=== PATIENT | male | born 2000 | race African-American/Black ===

== ENCOUNTER 2025-05-15 14:45 | Inpatient (IN) | payer OTHER ==
[~2025-05-15] VITALS: Ht 177.8 cm; Wt 72.5 kg
[2025-05-15 15:37] LABS: BASO # 0.0 10^3/uL (0.0-0.2); BASO % 0.1 % (0.0-1.0); EOS # 0.0 10^3/uL (0.0-0.5); EOS % 0.0 % (0.0-3.0); LYMPH # 1.4 10^3/uL (1.5-5.0); LYMPH % 9.1 % (24.0-44.0); MONO # 2.0 10^3/uL (0.0-0.8); MONO % 12.6 % (2.0-8.0); NEUTROPHILS # 12.3 10^3/uL (1.5-8.5); NEUTROPHILS % 77.8 % (36.0-66.0); PLATELET COUNT, AUTOMATED 213 10^3/uL (150-450)
[2025-05-15] MEDS: LIDOCAINE 2% 5 ML JELLY UROJET TOP ONE (15:39)
[2025-05-15] MEDS ORDERED: MIDAZOLAM 5 MG/ML 1 ML VIAL As Ordered ONE (15:54)
[2025-05-15] MEDS: MIDAZOLAM INJ 2 MG/2 ML VIAL IV ONE (15:55)
[2025-05-15] MEDS ORDERED: LEVETIRACETAM IV ONE ×2 (15:55→16:30)
[2025-05-15] MEDS ORDERED: D5W IV ONE ×2 (15:55→16:30)
[2025-05-15] MEDS: NS (Normal Saline) 0.9% 2,000 ML IV STA (16:04)
[2025-05-15 16:14] LABS: ALT/SGPT 26 U/L (7.0-40); AMPHETAMINES LEVEL URINE NEGATIVE (NEGATIVE); AST/SGOT 235 U/L (<34); BARBITURATES URINE NEGATIVE (NEGATIVE); BENZODIAZEPINES URINE NEGATIVE (NEGATIVE); CALCIUM LEVEL 10.1 MG/DL (8.5-10.1); CANNABINOIDS URINE POSITIVE (NEGATIVE); CARBON DIOXIDE LEVEL 26 MMOL/L (20-31); CHLORIDE LEVEL 104 MMOL/L (98-107); COCAINE METABOLITE URINE NEGATIVE (NEGATIVE); CREATININE FOR GFR 1.52 MG/DL (0.70-1.30); ETHYL ALCOHOL (ETHANOL) < 0.003 % (0.000-0.010); GLOMERULAR FILTRATION RATE 62.8 (>60); METHADONE URINE NEGATIVE (NEGATIVE); OPIATES URINE NEGATIVE (NEGATIVE); PHENCYCLIDINE URINE NEGATIVE (NEGATIVE); POTASSIUM SERUM 4.1 MMOL/L (3.5-5.1); SALICYLATE LEVEL < 3.0 MG/DL (<30); SODIUM LEVEL 143 MMOL/L (136-145)
[2025-05-15] MEDS ORDERED: D5W IV SCH (16:30)
[2025-05-15] MEDS ORDERED: LEVETIRACETAM IV SCH (16:30)
[2025-05-15] MEDS: D5W IV ONE (16:45)
[2025-05-15] MEDS: LEVETIRACETAM IV ONE (16:45)
[2025-05-15 16:50] LABS: CPK CREATINE PHOSPHOKINASE 27873 U/L (46-171)
[2025-05-15] MEDS: NS (Normal Saline) 0.9% 1,000 ML IV SCH (17:34)
[2025-05-15] MEDS ORDERED: LEVE10003 PO (17:43)
[2025-05-15] MEDS ORDERED: HOME MED LIST COMPLETE! XX SCH (18:00)
[2025-05-15 23:06] VITALS: BP 133/73; TEMP 97.7; O2SAT 98
[2025-05-16] VITALS (8 sets, daily range): BP systolic 116–133; BP diastolic 60–78; TEMP 97.5–100.9; O2SAT 96–99
[2025-05-16] MEDS: NS (Normal Saline) 0.9% 1,000 ML IV SCH (00:49)
[2025-05-16 06:07] LABS: BASO # 0.0 10^3/uL (0.0-0.2); BASO % 0.2 % (0.0-1.0); EOS # 0.0 10^3/uL (0.0-0.5); EOS % 0.2 % (0.0-3.0); LYMPH # 1.2 10^3/uL (1.5-5.0); LYMPH % 13.2 % (24.0-44.0); MONO # 1.1 10^3/uL (0.0-0.8); MONO % 11.3 % (2.0-8.0); NEUTROPHILS # 7.0 10^3/uL (1.5-8.5); NEUTROPHILS % 74.6 % (36.0-66.0); PLATELET COUNT, AUTOMATED 188 10^3/uL (150-450)
[2025-05-16 07:01] LABS: CALCIUM LEVEL 8.7 MG/DL (8.5-10.1); CARBON DIOXIDE LEVEL 22.0 MMOL/L (20-31); CHLORIDE LEVEL 111.0 MMOL/L (98-107); CPK CREATINE PHOSPHOKINASE 23990.0 U/L (46-171); CREATININE FOR GFR 1.24 MG/DL (0.70-1.30); GLOMERULAR FILTRATION RATE 81.7 (>60); POTASSIUM SERUM 4.9 MMOL/L (3.5-5.1); SODIUM LEVEL 144.0 MMOL/L (136-145)
[2025-05-16] MEDS: levETIRAcetam INJection 1,000 MG in IV 1 EA IV SCH (08:21)
[2025-05-16] MEDS ORDERED: ACETAMINOPHEN 325 MG TAB PO PRN (17:40)
[2025-05-17] MEDS: LORazepam 0.5 MG TAB PO ONE (02:06)
[2025-05-17 03:30] VITALS: BP 131/80; TEMP 99.8; O2SAT 98
[2025-05-17 05:44] LABS: BASO # 0.0 10^3/uL (0.0-0.2); BASO % 0.2 % (0.0-1.0); EOS # 0.0 10^3/uL (0.0-0.5); EOS % 0.0 % (0.0-3.0); LYMPH # 0.5 10^3/uL (1.5-5.0); LYMPH % 6.3 % (24.0-44.0); MONO # 0.7 10^3/uL (0.0-0.8); MONO % 7.8 % (2.0-8.0); NEUTROPHILS # 7.4 10^3/uL (1.5-8.5); NEUTROPHILS % 85.4 % (36.0-66.0); PLATELET COUNT, AUTOMATED 129 10^3/uL (150-450)
[2025-05-17 06:12] LABS: CALCIUM LEVEL 8.1 MG/DL (8.5-10.1); CARBON DIOXIDE LEVEL 26 MMOL/L (20-31); CHLORIDE LEVEL 107 MMOL/L (98-107); CREATININE FOR GFR 1.05 MG/DL (0.70-1.30); GLOMERULAR FILTRATION RATE > 90.0 (>60); POTASSIUM SERUM 4.0 MMOL/L (3.5-5.1); SODIUM LEVEL 142 MMOL/L (136-145)
[2025-05-17 07:29] VITALS: BP 141/62; TEMP 100.1; O2SAT 100
[2025-05-17 10:00] VITALS: BP 139/82; TEMP 99.3; O2SAT 100
[2025-05-17 12:16] VITALS: BP 139/82; TEMP 99.3; O2SAT 100
[2025-05-17 15:15] LABS: MAGNESIUM LEVEL 1.6 MG/DL (1.8-2.4)
[2025-05-17 15:24] VITALS: BP 136/83; TEMP 99.9; O2SAT 99
[2025-05-17] MEDS: HEPARIN SOD 5000 UNITS/ML 1 ML VIAL/SYRINGE SQ SCH (20:00)
[2025-05-17 20:11] VITALS: BP 158/87; TEMP 98.6; O2SAT 99
[2025-05-18 04:10] VITALS: BP 133/70; TEMP 97.1; O2SAT 99
[2025-05-18 09:02] VITALS: BP 133/86; TEMP 98.3; O2SAT 100
[2025-05-18] MEDS: MAG SULF 1GM/100ML (MAG RUN) 1 GM in IV 1 EA IV SCH (10:44)
[2025-05-18] MEDS ORDERED: KEPP1SOL PO (14:25)
== END 2025-05-18 16:32 | disposition home or self-care (01) | DRG 53 ==
LOC: EDBD 14:45 → M ED 14:45 → M ED INP 18:16 → M PCU 23:03
PROVIDERS: ADMIT Internal Medicine Nephrology; ATTEND Student in an Organized Health Care Education/Training Program
DX: G40.909 Epilepsy, unspecified, not intractable, without status epilepticus (principal); M62.82 Rhabdomyolysis; G93.41 Metabolic encephalopathy; F79 Unspecified intellectual disabilities; F12.90 Cannabis use, unspecified, uncomplicated; F39 Unspecified mood [affective] disorder